=== PATIENT | male | born 1965 | race Caucasian/White ===

== ENCOUNTER → 2016-10-13 | Outpatient (CLI) | payer OTHER | LOC: MHCPAIN 08:23 | DX: G89.29 Other chronic pain (principal); M47.27 Other spondylosis with radiculopathy, lumbosacral region; M53.3 Sacrococcygeal disorders, not elsewhere classified; E11.40 Type 2 diabetes mellitus with diabetic neuropathy, unspecified; F17.210 Nicotine dependence, cigarettes, uncomplicated | CPT/HCPCS: G0463 ==

== ENCOUNTER → 2016-12-15 | Outpatient (CLI) | payer OTHER | LOC: MHCPAIN 07:46 | DX: G89.29 Other chronic pain (principal); M47.817 Spondylosis without myelopathy or radiculopathy, lumbosacral region; M54.16 Radiculopathy, lumbar region; M53.3 Sacrococcygeal disorders, not elsewhere classified; E11.9 Type 2 diabetes mellitus without complications | CPT/HCPCS: G0463 ==

== ENCOUNTER → 2016-12-21 | Outpatient (CLI) | payer OTHER | LOC: MHCPAIN 13:04 | DX: M47.817 Spondylosis without myelopathy or radiculopathy, lumbosacral region (principal) | CPT/HCPCS: J1100; Q9967 ==

== ENCOUNTER → 2017-01-15 | Outpatient (CLI) | payer OTHER | LOC: MHCPAIN 09:58 | DX: G89.29 Other chronic pain (principal); M47.817 Spondylosis without myelopathy or radiculopathy, lumbosacral region; M54.16 Radiculopathy, lumbar region | CPT/HCPCS: G0463 ==

== ENCOUNTER 2021-01-31 10:26 | Emergency (ER) | payer BC ==
[~2021-01-31] VITALS: Ht 167.6 cm; Wt 80.9 kg
[2021-01-31 10:42] VITALS: TEMP 97.8
[2021-01-31] MEDS ORDERED: NORFLEX 10100 MG/TAB PO (13:20)
[2021-01-31 13:25] VITALS: BP 133/91; PULSE 95
[2021-01-31] MEDS ORDERED: OZEMPIC0.25 MG/0. SQ (19:18)
[2021-01-31] MEDS ORDERED: PROZAC 10MG10 MG PO (19:18)
[2021-01-31] MEDS ORDERED: ABILIFY2 MG PO (19:18)
[2021-01-31] MEDS ORDERED: TRESIBA FL200 UNIT/1 (19:18)
[2021-01-31] MEDS ORDERED: KLONOPIN 1MG1 MG PO (19:19)
[2021-01-31] MEDS ORDERED: WELLBUTRIN 75MG75 MG PO (19:19)
[2021-01-31] MEDS ORDERED: FLEXERIL 1010 MG/TAB PO (19:19)
[2021-01-31] MEDS ORDERED: ABILIFY5 MG PO (19:20)
[2021-01-31] MEDS ORDERED: ASPIRIN 81M81 MG/TA2 PO (19:20)
[2021-01-31] MEDS ORDERED: PRINIVIL10 MG PO (19:20)
[2021-01-31] MEDS ORDERED: PROZAC 20MG20 MG PO (19:20)
[2021-01-31] MEDS ORDERED: NATEGLINIDE60 MG PO (19:21)
[2021-01-31] MEDS ORDERED: NEURONTIN300 MG/CAP PO (19:21)
[2021-01-31] MEDS ORDERED: LIPITOR 80MG80 MG PO (19:21)
[2021-01-31] MEDS ORDERED: GLUCOPHAGE XR500 M1 PO (19:21)
== END 2021-01-31 13:33 | disposition home or self-care (01) ==
LOC: COL.ER 10:26
DX: M54.10 Radiculopathy, site unspecified (principal); E11.40 Type 2 diabetes mellitus with diabetic neuropathy, unspecified; F17.210 Nicotine dependence, cigarettes, uncomplicated
CPT/HCPCS: J2360

== ENCOUNTER → 2021-02-16 | Outpatient (CLI) | payer BC ==
[~2021-02-16] MED LIST: ABILIFY2 MG PO; ABILIFY5 MG PO; ASPIRIN 81M81 MG/TA2 PO; FLEXERIL 1010 MG/TAB PO; GLUCOPHAGE XR500 M1 PO; KLONOPIN 1MG1 MG PO; LIPITOR 80MG80 MG PO; NATEGLINIDE60 MG PO; NEURONTIN300 MG/CAP PO; NORFLEX 10100 MG/TAB PO; OZEMPIC0.25 MG/0. SQ; PRINIVIL10 MG PO; PROZAC 10MG10 MG PO; PROZAC 20MG20 MG PO; TRESIBA FL200 UNIT/1; WELLBUTRIN 75MG75 MG PO
[2021-02-16 13:24] LABS: CREATININE, serum 1.07 (0.66-1.25)
[2021-02-16 13:54] LABS: THYROID STIMULATING HORMONE 1.42 uIU/mL (0.465-4.680)
== END ==
LOC: COL.RAD 12:31
PROVIDERS: Psychiatry & Neurology Neurology
DX: R90.82 White matter disease, unspecified (principal); Z79.899 Other long term (current) drug therapy
CPT/HCPCS: A9585

== ENCOUNTER → 2022-01-25 | Outpatient (CLI) | payer BC | LOC: COL.RAD 09:14 | DX: K21.9 Gastro-esophageal reflux disease without esophagitis (principal); Z98.890 Other specified postprocedural states ==

== ENCOUNTER 2022-09-01 07:01 | Day surgery (SDC) | payer BC ==
[~2022-09-01] VITALS: Ht 167.6 cm; Wt 81.8 kg
[2022-09-01] MEDS ORDERED: LIPITOR 10MG10 MG PO (07:50)
[2022-09-01] MEDS ORDERED: WELLBUTRIN XL150 MG PO (07:51)
[2022-09-01 08:04] VITALS: BP 131/96; PULSE 91; TEMP 97.1
[2022-09-01] MEDS ORDERED: LYRICA PO (08:20)
[2022-09-01] MEDS ORDERED: GLUMETZA500 MG PO (08:20)
[2022-09-01] MEDS ORDERED: REGLAN 10MG10 MG/TAB PO (08:22)
[2022-09-01] MEDS ORDERED: PRIL40 PO (08:23)
[2022-09-01] MEDS ORDERED: BASAGLAR K100 UNIT/1 SQ (08:24)
[2022-09-01] MEDS ORDERED: JARDIANCE25 PO (08:25)
[2022-09-01 09:00] VITALS: BP 116/86; PULSE 86; TEMP 97.1
[2022-09-01 09:15] VITALS: BP 130/74; PULSE 86
[2022-09-01 09:30] VITALS: BP 138/80; PULSE 84
--- NOTE | 2022-09-01 09:50 | NUR ---
0900 RETURNS TO ROOM 6 PER CART. AWAKE, ALERT. AMBULATES TO RECLINER WITH STANDBY ASSIST. RESP CLEAR, UNLABORED. DENIES NAUSEA, ABD PAIN, OR DYSPHAGIA. VITAL SIGNS OBTAINED. CALL LIGHT AT SIDE. 0915 TOLERATES PO WATER AND PUDDING WITHOUT NAUSEA. SWALLOWS WITHOUT DIFFICULTY 0917 DISCHARGE INSTRUCTIONS REVIEWED. PATIENT VERBALIZES UNDERSTANDING. COPY PROVIDED IN DISCHARGE FOLDER. 0932 DR. CALVILLO HERE TO VISIT WITH PATIENT. 0935 DRESSES SELF. AWAITING ARRIVAL OF
== END 2022-09-01 09:54 | disposition home or self-care (01) ==
LOC: SDCO 07:01
DX: Z12.11 Encounter for screening for malignant neoplasm of colon (principal); K44.9 Diaphragmatic hernia without obstruction or gangrene; K21.9 Gastro-esophageal reflux disease without esophagitis; G47.33 Obstructive sleep apnea (adult) (pediatric); Z86.010 Personal history of colon polyps; Z87.891 Personal history of nicotine dependence
CPT/HCPCS: J2704; J7120